=== PATIENT | female | born 1990 | race Caucasian/White ===

== ENCOUNTER 2018-09-26 00:10 | Emergency (ER) | payer MEDICAID, OTHER ==
[~2018-09-26] VITALS: Ht 154.9 cm; Wt 87.0 kg
[2018-09-26] MEDS ORDERED: IBUPROFEN 800MG TABLET PO ONE (04:00)
[2018-09-26 04:35] VITALS: BP 120/71
== END 2018-09-26 04:37 | disposition home or self-care (01) ==
LOC: ER 00:10
DX: M62.838 Other muscle spasm (principal); V48.0XXA Car driver injured in noncollision transport accident in nontraffic accident, initial encounter; Y93.89 Activity, other specified; Y92.89 Other specified places as the place of occurrence of the external cause; Y99.8 Other external cause status
CPT/HCPCS: 81025; 99283